=== PATIENT | male | born 1980 | race Caucasian/White ===

== ENCOUNTER 2016-09-30 17:25 | Emergency (ER) | payer MEDICAID, OTHER ==
[~2016-09-30] VITALS: Ht 177.8 cm; Wt 115.0 kg
[~2016-09-30 17:25] MED LIST: CEFU1TAB43 PO; GLIP5 PO; GLUCOMETER XX; GLUCOMTESTSTRIPS XX; IBUP400 PO; METF500 PO; OXYC5 PO; Z.0.LANCETS XX
[2016-09-30 17:27] VITALS: BP 164/89; PULSE 118; RESP 13; TEMP 98.9; O2SAT 100
--- NOTE | 2016-09-30 17:42 | PD ---
Physical Exam Time Seen by Provider: 17:40 Narrative 35yo M c/o cough x2-3 weeks and abd pain x2 days. Vomited for one day 5 days ago. Diarrhea, but not currently. PCP treated w/ amoxicillin and cipro; still taking. Sent by Dr Fabian for evaluation. Denies fever. Patient stable. Patient seen in triage. Awaiting bed placement. Data Data Last Documented VS Vital Signs Date Time Temp Pulse Resp B/P Pulse Ox O2 Delivery O2 Flow Rate FiO2 09/30/16 17:27 98.9 118 13 164/89 100 MDM Supervised Visit with SIL: Jody Fitzpatrick Sep 30, 2016 17:42
[2016-09-30] MEDS ORDERED: SODIUM CHLOR 0.9% 1000 ML INJ 1,000 ML IV SCH (19:11)
[2016-09-30] MEDS ORDERED: CIPR100T2 PO (19:12)
[2016-09-30] MEDS ORDERED: METF500T PO (19:12)
[2016-09-30] MEDS ORDERED: AMOX500C PO (19:12)
[2016-09-30] MEDS ORDERED: GLIP5TAB8 PO (19:12)
[2016-09-30] MEDS ORDERED: SODIUM CHLORIDE 0.9% FLUSH 10 ML FLUSH IV FLUSH PRN (19:15)
[2016-09-30] MEDS ORDERED: PANTOPRAZOLE SODIUM 40 MG VIAL IVP ONE (19:15)
--- NOTE | 2016-09-30 19:23 | PD ---
HPI Chief Complaint: Abdominal Pain Time Seen by Provider: 18:57 Travel History International Travel<30 days: No Contact w/Intl Traveler<30days: No Traveled to known affect area: No History of Present Illness HPI Patient is a 35-year-old male with history of GERD and DM who presents to emergency room with complaints of abdominal pain. Patient reports that he is currently being treated for upper respiratory infection with Ciprofloxacin as well as amoxicillin - he has been on these antibiotics for the past 5 days. Patient reports that for the past 2 days, he has been having abdominal pain. Patient reports that he has these pains after he sits down, reports that he has upper abdominal pain which radiates to his back, reports that these symptoms lasts a few seconds at a time and then resolve on its own. Reports that he went to his primary care doctor's office today, for a follow up appointment , reports that he was told to go to the ER for evaluation. Patient denies any nausea, vomiting, diarrhea this time. Patient reports that he is able to eat and drink like his normal self. Patient denies dysuria, urinary urgency or frequency. Patient reports that he is diabetic, reports that his blood sugars have been a little bit elevated over the past few days secondary to his infection. PFSH Past Medical History Diabetes: Yes (metformin and glipizide) Patient Takes Glucophage: No Diminished Hearing: No GERD: Yes (two episodes of relux a few years ago. ) Tetanus Vaccination: Unknown Influenza Vaccination: No ?: Not Past Surgical History Surgical History: No Previous Surgery Abdominal Surgery: Yes Social History Alcohol Use: No Tobacco Use: Yes (1/2ppd) Substance Use: No (none) Allergies-Medications (Allergen,Severity, Reaction): Coded Allergies: No Known Allergies (Unverified , 03/27/16) Reported Meds & Prescriptions Reported Meds & Active Scripts Active Reported Ciprofloxacin (Ciprofloxacin HCl) 100 Mg Tab 100 Mg PO BID Amoxicillin 500 Mg Cap 500 Mg PO BID Glipizide 5 Mg Tab 5 Mg PO BIDAC Take 30 minutes before a meal Metformin (Metformin HCl) 500 Mg Tab 500 Mg PO DAILY With a meal Review of Systems General / Constitutional: No: Fever, Chills Eyes: No: Visual changes HENT: No: Headaches Cardiovascular: No: Chest Pain or Discomfort Respiratory: Positive: Cough, No: Shortness of Breath, Wheezing Gastrointestinal: Positive: Abdominal Pain, No: Nausea, Vomiting, Diarrhea Genitourinary: No: Dysuria Musculoskeletal: No: Pain Skin: No Rash Neurologic: No: Weakness Psychiatric: No: Depression Endocrine: No: Polydipsia Hematologic/Lymphatic: No: Easy Bruising Physical Exam Narrative GENERAL: nad, nontoxic SKIN: Focused skin assessment warm/dry. HEAD: Atraumatic. Normocephalic. EYES: Pupils equal and round. No scleral icterus. No injection or drainage. ENT: No nasal bleeding or discharge. Mucous membranes pink and moist. NECK: Trachea midline. No JVD. CARDIOVASCULAR: Regular rate and rhythm. No murmur appreciated. RESPIRATORY: No accessory muscle use. Clear to auscultation. Breath sounds equal bilaterally. GASTROINTESTINAL: Abdomen soft, non-tender, nondistended. Hepatic and splenic margins not palpable. MUSCULOSKELETAL: No obvious deformities. No clubbing. No cyanosis. No edema. NEUROLOGICAL: Awake and alert. No obvious cranial nerve deficits. Motor grossly within normal limits. Normal speech. PSYCHIATRIC: Appropriate mood and affect; insight and judgment normal. Data Data Last Documented VS Vital Signs Date Time Temp Pulse Resp B/P Pulse Ox O2 Delivery O2 Flow Rate FiO2 09/30/16 17:27 98.9 118 13 164/89 100 Orders Complete Blood Count With Diff (09/30/16 19:11) Comprehensive Metabolic Panel (09/30/16 19:11) Lipase (09/30/16 19:11) Urinalysis - C+S If Indicated (09/30/16 19:11) Ct Abd/Pel W Iv Contrast(Rout) (09/30/16 19:11) Iv Access Insert/Monitor (09/30/16 19:11) Sodium Chlor 0.9% 1000 Ml Inj (Ns 1000 M (09/30/16 19:11) Sodium Chloride 0.9% Flush (Ns Flush) (09/30/16 19:15) Chest, Single Ap (09/30/16 19:11) Pantoprazole Inj (Protonix Inj) (09/30/16 19:15) Iohexol 350 Inj (Omnipaque 350 Inj) (09/30/16 19:58) Labs Laboratory Tests Test 09/30/16 09/30/16 19:30 20:15 White Blood Count 4.3 TH/MM3 Red Blood Count 2.99 MIL/MM3 Hemoglobin 9.5 GM/DL Hematocrit 26.6 % Mean Corpuscular Volume 89.1 FL Mean Corpuscular Hemoglobin 31.8 PG Mean Corpuscular Hemoglobin 35.7 % Concent Red Cell Distribution Width 15.6 % Platelet Count 73 TH/MM3 Mean Platelet Volume 8.2 FL Neutrophils (%) (Auto) 71.7 % Lymphocytes (%) (Auto) 14.2 % Monocytes (%) (Auto) 11.2 % Eosinophils (%) (Auto) 2.2 % Basophils (%) (Auto) 0.7 % Neutrophils # (Auto) 3.1 TH/MM3 Lymphocytes # (Auto) 0.6 TH/MM3 Monocytes # (Auto) 0.5 TH/MM3 Eosinophils # (Auto) 0.1 TH/MM3 Basophils # (Auto) 0.0 TH/MM3 CBC Comment AUTO DIFF Differential Comment AUTO DIFF CONFIRMED Platelet Estimate LOW Platelet Morphology Comment NORMAL Sodium Level 142 MEQ/L Potassium Level 3.4 MEQ/L Chloride Level 109 MEQ/L Carbon Dioxide Level 25.5 MEQ/L Anion Gap 8 MEQ/L Blood Urea Nitrogen 15 MG/DL Creatinine 1.00 MG/DL Estimat Glomerular Filtration 86 ML/MIN Rate Random Glucose 99 MG/DL Calcium Level 8.2 MG/DL Total Bilirubin 1.2 MG/DL Aspartate Amino Transf 97 U/L (AST/SGOT) Alanine Aminotransferase 84 U/L (ALT/SGPT) Alkaline Phosphatase 141 U/L Total Protein 6.1 GM/DL Albumin 3.1 GM/DL Lipase 311 U/L Urine Color YELLOW Urine Turbidity CLEAR Urine pH 6.0 Urine Specific Bow[place]s 1.025 Urine Protein NEG mg/dL Urine Glucose (UA) NEG mg/dL Urine Ketones NEG mg/dL Urine Occult Blood TRACE Urine Nitrite NEG Urine Bilirubin NEG Urine Urobilinogen LESS THAN 2.0 MG/DL Urine Leukocyte Esterase NEG Urine RBC 6 /hpf Urine WBC 1 /hpf Urine Calcium Oxalate Crystals OCC /hpf Urine Mucus FEW /lpf Microscopic Urinalysis Comment CULT NOT INDICATED MDM Medical Decision Making Medical Screen Exam Complete: Yes Emergency Medical Condition: Yes Interpretation(s) Vital Signs Date Time Temp Pulse Resp B/P Pulse Ox O2 Delivery O2 Flow Rate FiO2 09/30/16 17:27 98.9 118 13 164/89 100 Differential Diagnosis dehydration, gerd, viral syndrome, pneumonia, electrolyte abnormality Narrative Course Patient is a 35-year-old male who presents to emergency room with complaints of abdominal pain for the past 2 days. Patient reports that he has been having intermittent upper abdominal pain for the past 2 days, pain is worse with sitting down and last for a few seconds at a time. Overall, patient is nontoxic and evaluation. Abdomen is soft, nontender, nondistended, no peritoneal signs. Plan to obtain lab work, will obtain CT of abdomen and pelvis. Plan to hydrate patient and give Protonix. CBC & BMP Diagram 09/30/16 19:30 Last Impressions Chest X-Ray 09/30/161910 Signed Impressions: Service Date/Time: Friday, September 30, 2016 19:24 - CONCLUSION: Normal examination. Shukri Tanner MD Abdomen/Pelvis CT 09/30/161910 Signed Impressions: Service Date/Time: Friday, September 30, 2016 19:56 - CONCLUSION: 1. Cirrhosis and portal hypertension with moderate ascites. Shukri Tanner MD Patient re-evaluated. Abdomen is soft, nt/nd, no peritoneal signs. Patient with resolution of abdominal pain at this time. I reviewed all labs and all studies with patient in detail including incidental findings. Patient will follow-up with his primary care doctor and will return to the emergency room as needed. He was given a copy of all his studies as he will need to follow-up with his primary care doctor for all incidental findings. Diagnosis Primary Impression: Abdominal pain Qualified Code: R10.10 - Pain of upper abdomen Additional Impressions: Cirrhosis Qualified Code: K74.60 - Cirrhosis of liver with ascites, unspecified hepatic cirrhosis type Portal hypertension Ascites Qualified Code: R18.8 - Other ascites Anemia Qualified Code: D64.9 - Anemia, unspecified type Thrombocytopenia Transaminitis Referrals: Golden Torres MD Patient Instructions: General Instructions Additional Instructions: Please give patient a copy of his labwork at discharge Please follow-up with your primary care doctor in 2-3 days Returns to emergency room as needed Return to the emergency room symptoms worsen or progress Please bring your radiology report to doctor's office for follow-up and all incidental findings from today. Please follow-up with a web marketing manager as soon as possible, bring your discharge paperwork including a lab work and CT findings Disposition: 01 DISCHARGE HOME Condition: Karla De Leon DO Sep 30, 2016 19:23
--- NOTE | 2016-09-30 19:31 | RADRPT ---
EXAM DATE/TIME: 09/30/2016 19:24 [facility] COMPARISON: No previous studies available for comparison. INDICATIONS : Cough MEDICAL HISTORY : Diabetes mellitus type II. SURGICAL HISTORY : None. ENCOUNTER: Initial ACUITY: 1 week PAIN SCORE: 0/10 LOCATION: Bilateral chest FINDINGS: A single view of the chest demonstrates the lungs to be symmetrically aerated without evidence of mas s, infiltrate or effusion. The cardiomediastinal contours are unremarkable. Osseous structures are intact. CONCLUSION: Normal examination. Shukri Tanner MD on September 30, 2016 at 19:29 Board Certified Radiologist. This report was verified electronically.
[2016-09-30] MEDS ORDERED: IOHEXOL 350 MG/ML 10 ML VIAL (for RAD DIAG) IV ONE (19:58)
[2016-09-30 20:06] LABS: AUTOMATED NEUTROPHIL # 3.1 TH/MM3 (1.8-7.7); BASOPHIL % 0.7 % (0.0-2.0); EOSINOPHIL # 0.1 TH/MM3 (0-0.4); EOSINOPHIL % 2.2 % (0.0-4.0); HEMATOCRIT 26.6 % (39.0-51.0); LYMPH % 14.2 % (9.0-44.0); LYMPHOCYTE # 0.6 TH/MM3 (1.0-4.8); MEAN CELL VOLUME 89.1 FL (80.0-100.0); MEAN CORPUSCULAR HEMOGLOBIN 31.8 PG (27.0-34.0); MEAN CORPUSCULAR HGB CONC 35.7 % (32.0-36.0); MONO % 11.2 % (0.0-8.0); NEUT % 71.7 % (16.0-70.0); PLATELET COUNT 73 TH/MM3 (150-450); RED BLOOD COUNT 2.99 MIL/MM3 (4.50-5.90); RED CELL DISTRIBUTION WIDTH 15.6 % (11.6-17.2); WHITE BLOOD COUNT 4.3 TH/MM3 (4.0-11.0)
--- NOTE | 2016-09-30 20:10 | RADRPT ---
EXAM DATE/TIME: 09/30/2016 19:56 [facility] COMPARISON: No previous studies available for comparison. INDICATIONS : Abdomen pain past 2 days. IV CONTRAST: 97 cc Omnipaque 350 (iohexol) IV ORAL CONTRAST: No oral contrast ingested. RADIATION DOSE: 25.85 CTDIvol (mGy) MEDICAL HISTORY : Diabetes mellitus type 2. SURGICAL HISTORY : None. ENCOUNTER: Initial ACUITY: 2 days PAIN SCALE: 5/10 LOCATION: Bilateral abdomen TECHNIQUE: Volumetric scanning of the abdomen and pelvis was performed. Using automated exposure control and ad justment of the mA and/or kV according to patient size, radiation dose was kept as low as reasonably achievable to obtain optimal diagnostic quality images. FINDINGS: There is a moderate amount of ascites within the abdomen or pelvis. Urinary bladder is unremarkable. No evidence of bowel obstruction. There is portal hypertension with cirrhosis, splenomegaly, and nume priti upper abdominal varices. The liver is heterogeneous with a nodular contour. The kidneys, adrenal glands, pancreas are unremarkable. Stomach unremarkable. The portal vein diameter is increased and t here is recanalization of the umbilical vein. Spleen measures 22 cm in cephalocaudal dimension. Lung bases are clear. Osseous structures are intact. CONCLUSION: 1. Cirrhosis and portal hypertension with moderate ascites. Shukri Tanner MD on September 30, 2016 at 20:07 Board Certified Radiologist. This report was verified electronically.
[2016-09-30 20:21] LABS: ANION GAP 8 MEQ/L (5-15); AST (GOT) 97 U/L (15-37); BICARBONATE 25.5 MEQ/L (21.0-32.0); BLOOD UREA NITROGEN 15 MG/DL (7-18); CHLORIDE 109 MEQ/L (98-107); GLOMERULAR FILTRATION RATE 86 ML/MIN (>89); POTASSIUM 3.4 MEQ/L (3.5-5.1); SODIUM (NA) 142 MEQ/L (136-145)
[2016-09-30 20:24] LABS: ALKALINE PHOSPHATASE 141 U/L (45-117); ALT (GPT) 84 U/L (12-78); TOTAL BILIRUBIN ADULT 1.2 MG/DL (0.2-1.0)
[2016-09-30 20:27] LABS: HEMO FLAGS AUTO DIFF
[2016-09-30 21:09] LABS: PLATELET ESTIMATE SMEAR LOW (NORMAL); PLATELET MORPHOLOGY NORMAL (NORMAL); SCAN/DIFF AUTO DIFF CONFIRMED
[2016-09-30 21:12] LABS: BLOOD, URINE TRACE (NEG); CALCIUM OXALATE CRYSTALS,URINE OCC /hpf; COMMENT (UR) CULT NOT INDICATED; CULTURE IF INDICATED CULT NOT INDICATED; GLUCOSE,URINE NEG (NEG); KETONE, URINE NEG (NEG); MUCUS URINE FEW /lpf (OCC); NITRITE,URINE NEG (NEG); URINE COLOR YELLOW (YELLW/STRAW)
== END 2016-09-30 21:44 | disposition home or self-care (01) ==
LOC: NEPD 17:25
DX: R10.10 Upper abdominal pain, unspecified (principal); K74.60 Unspecified cirrhosis of liver; K76.6 Portal hypertension; R18.8 Other ascites; D64.9 Anemia, unspecified; D69.6 Thrombocytopenia, unspecified; R74.0 Nonspecific elevation of levels of transaminase and lactic acid dehydrogenase [LDH]; R05 Cough; E11.9 Type 2 diabetes mellitus without complications; K21.9 Gastro-esophageal reflux disease without esophagitis; F17.210 Nicotine dependence, cigarettes, uncomplicated
CPT/HCPCS: 71010; 74177; 80053; 81001; 83690; 85025; 96361; 96374; 99284; C9113; J7030; Q9967